=== PATIENT | male | born 1955 | race Caucasian/White ===

== ENCOUNTER 2020-05-22 06:35 | Day surgery (SDC) | payer OTHER | END 2020-05-22 10:20 | disposition home or self-care (01) | LOC: AMB-ENDOS 06:35 | PROVIDERS: ATTEND Surgery | DX: K63.5 Polyp of colon (principal); Z20.828 Contact with and (suspected) exposure to other viral communicable diseases ==

== ENCOUNTER → 2020-12-11 | Outpatient (CLI) | payer OTHER | END | disposition home or self-care (01) | LOC: ASH CLINIC 15:40 | PROVIDERS: ATTEND Emergency Medicine | DX: Z23 Encounter for immunization (principal); U07.1 COVID-19 ==

== ENCOUNTER → 2022-12-02 | Outpatient (CLI) | payer OTHER | END | disposition home or self-care (01) | LOC: MRI 14:55 | DX: M54.59 Other low back pain (principal) | CPT/HCPCS: 72146; 72148 ==

== ENCOUNTER → 2023-05-21 08:31 | Outpatient (CLI) | payer OTHER | END | disposition home or self-care (01) | LOC: NUCLEAR 07:30 | DX: C15.5 Malignant neoplasm of lower third of esophagus (principal); C77.2 Secondary and unspecified malignant neoplasm of intra-abdominal lymph nodes; C77.0 Secondary and unspecified malignant neoplasm of lymph nodes of head, face and neck | CPT/HCPCS: 78816; A9552 ==

== ENCOUNTER 2023-12-02 07:48 | Outpatient (CLI) | payer OTHER | END 2023-12-02 07:49 | disposition home or self-care (01) | LOC: NUCLEAR 07:48 | PROVIDERS: ATTEND Internal Medicine | DX: C15.9 Malignant neoplasm of esophagus, unspecified (principal) | CPT/HCPCS: 78816; A9552 ==

== ENCOUNTER 2024-06-30 14:33 | Outpatient (CLI) | payer OTHER | END 2024-06-30 14:44 | disposition home or self-care (01) | LOC: MRI 14:33 | DX: R41.0 Disorientation, unspecified (principal) | CPT/HCPCS: 70551 ==

== ENCOUNTER 2024-07-06 07:51 | Outpatient (CLI) | payer OTHER | END 2024-07-06 07:52 | disposition home or self-care (01) | LOC: NUCLEAR 07:51 | DX: C15.5 Malignant neoplasm of lower third of esophagus (principal); C77.0 Secondary and unspecified malignant neoplasm of lymph nodes of head, face and neck; C77.2 Secondary and unspecified malignant neoplasm of intra-abdominal lymph nodes | CPT/HCPCS: 78816; A9552 ==

== ENCOUNTER 2025-02-21 07:31 | Outpatient (CLI) | payer OTHER | END 2025-02-21 07:33 | disposition home or self-care (01) | LOC: NUCLEAR 07:31 | PROVIDERS: ATTEND Internal Medicine Hematology & Oncology | DX: C15.5 Malignant neoplasm of lower third of esophagus (principal); C77.2 Secondary and unspecified malignant neoplasm of intra-abdominal lymph nodes; C77.0 Secondary and unspecified malignant neoplasm of lymph nodes of head, face and neck | CPT/HCPCS: 78816; A9552 ==